=== PATIENT | male | born 1975 ===

== ENCOUNTER 2016-10-25 15:38 | Emergency (ER) | payer MEDICARE ==
[~2016-10-25] VITALS: Ht 170.2 cm; Wt 77.3 kg
[2016-10-25 15:40] VITALS: BP 135/95; PULSE 106; RESP 16; O2SAT 99
--- NOTE | 2016-10-25 15:49 | ED.REPORT ---
HPI-General Illness Date of Service Oct 25, 2016 ED Provider: Kaylee Carranza History of Present Illness: moved here from [place] a few months ago Appointment with [facility] at [facility] in [place]. anxiety through the roof. takes clonzapam and lexapro. Has not taken for a few months with Has tried well butrin and librium and zanax . also feet pain hx of heel frature in 2010. chronic pain takes 30 mg oxycodone, soma and gapabentin out for a couple months. Nursing Notes Stated Complaint: FEET PAIN/ANXIETY Chief Complaint: General Complaint Nursing Notes Reviewed: Yes Allergies: Uncoded Allergies: PENCILLIN (Allergy, Mild, hives, 10/25/16) General Time Seen by MD: 15:46 Chief Complaint Medication refill Hx Obtained From: Patient Location: : Foot left: Foot right Quality: Same as prior Past Medical History Past Medical History Chronic pain in feet from heel fractures Past Surgical History feet surgery Smoking History Current Every Day Smoker Social History Alcohol Use: Denies alcohol use Drug Use: Denies drug use Occupation lives with girlfriend, states moved here 2 to 3 months ago Review of Systems Full Review of Systems Constitutional: Denies: Chills Ears / Nose / Throat: Denies: Ear drainage left, Ear drainage right Cardiovascular: Denies: Chest pain Male: Denies Dysuria Neurologic: Denies: Abnormal movement Psychiatric: Denies: Agitation Physical Exam Vital Signs Vital Signs Date Time Temp Pulse Resp B/P Pulse Ox O2 Delivery O2 Flow Rate FiO2 10/25/16 16:34 36.4 106 16 135/95 99 Room Air 10/25/16 15:40 36.4 106 16 135/95 99 Room Air Initial VS: Reviewed, Vital signs abnormal General/Constitutional: Well-developed, Well-nourished Head / Eyes: Atraumatic, Normocephalic, PERRL ENT: Mucous membranes moist, Conjunctiva normal, No scleral icterus Neck: Supple, Non-tender, Full range of motion Respiratory: Breath sounds normal, Clear to auscultation, No respiratory distress Cardiovascular: Regular rate & rhythm, Heart sounds normal, Intact distal pulses Abdomen / GI: Soft, Non-tender, No guarding, No rebound, No distention Back: No CVA tenderness Lymphatic: No lymphadenopathy Extremities: Vascular intact, Neuro intact, No swelling, No tenderness Skin: Warm, Dry, No cyanosis Neurologic: Alert, Oriented, Nonfocal Psychiatric: Mood/affect normal, Behavior normal, Normal thought content General/Constitutional: Awake, Alert, No acute distress, Well appearing, Well developed, Well hydrated, Well nourished, Cooperative, Not toxic appearing ENT: Atraumatic, Airway patent, Mucous membranes moist, Pharynx NL, No peritonsillar abscess Respiratory / Chest: Atraumatic, Breath sounds NL, Breath sounds = bilat, No respiratory distress Cardiovascular: Heart rate NL, Regular rhythm, Heart sounds NL, No gallop Abdomen: Atraumatic, Soft, Non-tender, McBurney's non-tender well healed scars. no sign of infection Re-Eval/Medical Decision Med Decision/Clinical Course 40 year old male presents for refill of his chronic pain medication and clonzapam. REview of the [employer] indicates visits on 01/25/2016Ativan 0.5 mg # 10 provided by Roel Stone and oxycodone 10 mg on 01/25/2016 by Roel Stone. On 01/28/2016 oxycodone 10 mg #[address] Agarwal and lorazepam 0.5 mg #[address] Agarwal. On 02/02/2016 oxycodone 10 mg #20 provided by Roel Stone. Discussed with patient will need to get those medications from primary care. Explained to him pain medications may not be provided. He may need to got to a pain clinic for his needs. Discharge & Departure Primary Impression: Chronic pain Chronic pain type: other chronic pain Qualified Code: G89.29 - Other chronic pain Additional Impression: Chronic anxiety Disposition: Home Patient Instructions: Chronic Pain (ED) Additional Instructions: The ER does not address chronic pain with opiates. That needs to come from primary care or pain management. The clonzapam that you desire may or not be provided from primary care. I would suggest [facility]. It may take some time to see a prescriber. I can do a small amount of lexapro until you are seen by your provider. Also a small amount of gabapentin may help your discomfort. Please keep the appointment that you have schedule on Wednesday. Referrals: OTHER,PHYSICIAN EDSupervising Provider for APC: Shawn Moreno MD copies to: OTHER,PHYSICIAN Kaylee Carranza Oct 25, 2016 15:49
[2016-10-25] MEDS ORDERED: hydrOXYzine Pamoate 25 mg Capsule PO ONE (16:05)
[2016-10-25 16:34] VITALS: BP 135/95; PULSE 106; RESP 16; O2SAT 99
== END 2016-10-25 16:32 | disposition home or self-care (01) ==
LOC: SED 15:38
DX: G89.29 Other chronic pain (principal); F41.9 Anxiety disorder, unspecified; M79.671 Pain in right foot; M79.672 Pain in left foot; F17.200 Nicotine dependence, unspecified, uncomplicated; F42.9 Obsessive-compulsive disorder, unspecified; Z88.0 Allergy status to penicillin
CPT/HCPCS: 96372; 99284; G0463; J1885; Q0177